=== PATIENT | female | born 1970 | race African-American/Black ===

== ENCOUNTER 2016-11-11 06:11 | Inpatient (IN) | payer MEDICARE ==
[~2016-11-11] VITALS: Ht 160 cm; Wt 150.8 kg
--- NOTE | ~2016-11-11 | CO ---
Unit #: [id number] #: [id number] Patient: JOSELYN MORSE [id number] [facility]. [place], [place] [address] [id number] I MR#: [id number] NAME: JOSELYN MORSE. ROOM: 550 Age: 45 Sex: F Admission Date: 11/11/2016 : 1970 Attending Physician: Juliette Porter M.D. Primary Care Physician: Kane Ferrara M.D. CONSULTATION REPORT REASON FOR CONSULTATION Elevated creatinine level. HISTORY OF PRESENT ILLNESS The patient is a 45-year-old morbidly obese female with known history of diabetes and proteinuria with clinical diagnosis of diabetic nephropathy with chronic kidney disease stage 3 to 4 with a creatinine level on admission noted to be 3.3 and 1.8 to 2.4 in the last one year. The patient has never needed dialysis in the past. The patient does report dysuria. She came in with chest discomfort and chest pain. Does not admit to NSAID use. No vomiting or diarrhea. No recent IV contrast. The patient has not needed dialysis in the past. PAST MEDICAL HISTORY Significant for type 2 diabetes, diabetic retinopathy, diabetic nephropathy, proteinuria, hypertension, history of DVT. PAST SURGICAL HISTORY Significant for . FAMILY HISTORY Significant for ESRD on mother. SOCIAL HISTORY The patient does not drink or smoke. REVIEW OF SYSTEMS CVS: As above. RESPIRATORY: No cough or expectoration. GI: No diarrhea. No vomiting. : As above. PHYSICAL EXAMINATION GENERAL: The patient is awake, alert, and oriented. VITAL SIGNS: Temperature of 98.1, heart rate is 80 per minute, blood pressure is 128/65, saturations are 100%. HEENT: Head is atraumatic. Extraocular movements are intact. Pupils are reactive. Sclerae are anicteric. Nose, no discharge. Ears, no discharge. NECK: Supple. There is no elevation of the JVD. CHEST: Clear. Air entry is equal bilaterally. Breathing is vesicular in nature. HEART: S1 and S2 audible. There is no S3, no S4. ABDOMEN: Soft. There is no organomegaly. No guarding. No rigidity. No Unit #: [id number] #: [id number] Patient: JOSELYN MORSE rebound tenderness. There is trace 1+ edema. [employer]ILDINGS: Motor system is intact. Cerebellar system is intact. DIAGNOSTIC STUDIES LABORATORY RESULTS: WBC 9.1, hemoglobin is 9.3, hematocrit is 28.6, platelets 275. Sodium is 138, potassium 4.6, chloride is 107, CO2 is 25, BUN is 41, creatinine is 3.3, glucose is 156, calcium is 8.4, total bilirubin is 0.3, albumin is 2.9. Urinalysis; has 3+ protein, rbc 2 to 5 with 50 to 100 wbc and 4+ bacteria. IMPRESSION 1. Acute kidney injury, possible underlying acute tubular necrosis secondary to urinary tract infection/sepsis versus progression of underlying chronic kidney disease stage 3 to 4. We will gently hydrate the patient and follow the renal function and waste products. Currently, urine output is adequate. No acute need for dialysis. 2. Chronic kidney disease. 3. Possible progression to end-stage renal disease. We will follow the progression of underlying chronic kidney disease. 4. Urinary tract infection. The patient is on Rocephin. 5. Hyperkalemia. 6. Chest pain. Cardiac workup in progress. 7. Shortness of breath. V/Q scan is unremarkable. 8. Hypertension. Use p.r.n. hydralazine. Dictated by... Kendell Barr M.D. RA/brittany TD: 11/13/2016 19:49 JOB #: [id number] CONSULTATION REPORT Page 1 of 1 X Kendell Barr MD CONSULTATION REPORT
--- NOTE | ~2016-11-11 | HP ---
Unit #: [id number] #: [id number] Patient: JOSELYN MORSE [id number] [facility]. [place], [place] [address] [id number] I MR#: [id number] NAME: JOSELYN MORSE. ROOM: 550 Age: 45 Sex: F Admission Date: 11/11/2016 : 1970 Attending Physician: Juliette Porter M.D. Primary Care Physician: Kane Ferrara M.D. HISTORY AND PHYSICAL CHIEF COMPLAINT Chest pain and shortness of breath. HISTORY OF PRESENT ILLNESS Ms. Morse is a 45-year-old -[place] morbidly obese female, is here with chest pain. According to patient, it has been going on for last few days or so. Two days ago, she was having some fever and chills and very strong smell in the urine. Yesterday, she was having fever and chills and also nausea and vomiting. She thought vomiting could be secondary to adjustment of Lap Band which was done a month ago or so. Yesterday, she started having shortness of breath. She could not walk, even a block without getting shortness of breath which according to her has improved. There was no complaint of orthopnea or paroxysmal nocturnal dyspnea. She does not complain of wheezing. Then this morning at 2 o'clock, she started having chest pain. She was sweating. She had some numbness on the left upper extremity and some pain in the left neck area too. She came to ER for further evaluation and is being admitted to hospital for angina. PAST MEDICAL HISTORY 1. Hypertension. 2. Obstructive sleep apnea. 3. COPD. 4. History of intracranial hemorrhage in 2008. 5. Hyperlipidemia. 6. Coronary artery disease. 7. Diabetes mellitus. 8. Degenerative disk disease. 9. Morbid obesity. 10. Anemia. 11. History of ischemic cardiomyopathy with ejection fraction of 30%. PAST SURGICAL HISTORY Multiple surgeries includin. Cardiac catheterization. 2. Cardiac stent placement. 3. Hysterectomy. 4. Tubal ligation. 5. IVC filter placement. 6. History of EGD in the past. SOCIAL HISTORY The patient lives at home. No history of smoking, alcohol, or drug abuse. Unit #: [id number] #: [id number] Patient: MINI,LAVADA T ALLERGIES No known drug allergies. FAMILY HISTORY Diabetes and hypertension is present. REVIEW OF SYSTEMS No history of dizziness or syncopal episode. She does have chronic vision problem because of macular degeneration. She does complain of some diarrhea but no constipation. She did have vomiting. She had Lap Band adjustment done about a month ago or so. Rest is as per history of presenting illness. Patient does not complain of any pain at this time. PHYSICAL EXAMINATION GENERAL: Patient is being evaluated in room 550. VITAL SIGNS: Blood pressure is 144/64, respiratory rate 18, pulse 76, temperature 98.6, oxygen saturation 96%. HEENT: Head is normocephalic. Eye movements are normal. No JVD. CHEST: Fair air entry, decreased at the bases. CARDIOVASCULAR: S1, S2 positive. Regular rhythm. ABDOMEN: Obese. No tenderness. EXTREMITIES: Edema is present bilateral, left is more than right. CENTRAL NERVOUS SYSTEM: Patient is awake, alert, oriented x3. No focal neurological deficit. DIAGNOSTIC STUDIES LABORATORY: WBC 9.1, hemoglobin 9.3, hematocrit 28.6, platelet count 275,000. Troponin is less than 0.05. PT/INR is 10.4 and 0.9. Sodium 138, potassium 4.6, chloride 107, BUN 41, creatinine 3.3. D-dimer elevated to 809. IMAGING: Chest x-ray was done in ER and that showed no acute cardiopulmonary findings. CARDIOVASCULAR: EKG: No significant changes. ASSESSMENT AND PLAN The patient is being admitted to telemetry unit at [facility]. Dr. Simon has been consulted. EKG and cardiac enzymes will be done q.6 times two. Home medications have been reviewed and adjusted. Venous Doppler of bilateral lower extremity will be done to rule out deep venous thrombosis. V/Q scan to rule out pulmonary embolus because of elevated D-dimer. Urinalysis and culture will be done. Dr. Nash will be consulted. Labs will be repeated tomorrow morning. BNP will be done. Healthy heart CCD. Protonix 40 mg daily. Accu-Cheks a.c. and at bedtime with insulin sliding scale low-dose protocol. Lovenox 40 mg subcutaneous daily. Dictated by Robert Adams TD: 11/11/2016 16:07 JOB #: [id number] Unit #: [id number] #: [id number] Patient: JOSELYN MOSRE HISTORY AND PHYSICAL Page 1 of 1 X Juliette Porter MD HISTORY AND PHYSICAL
--- NOTE | ~2016-11-11 | US84 ---
[id number] [facility] [address] [place], [place] [address] [id number] I MR#: [id number] Acc #: [id number] NAME: JOSELYN MORSE : 1970 SEX: F STUDY DATE/TIME: 11/11/2016 17:18 UNIT: C5B ROOM: 550 STUDY DESCRIPTION: US LE Veins Complete Zack Stdy Attending Physician: Juliette Porter M.D. Ordering Physician: Juliette Porter M.D. Primary Care Physician: Kane Ferrara M.D. MEDICAL IMAGING REPORT This report is preliminary unless electronic signature is present EXAM Bilateral lower extremity venous duplex 11/11/2016 HISTORY Bilateral lower extremity edema for 2 weeks, shortness of breath and chest pain for 2 weeks. Evaluate for deep vein thrombosis. TECHNIQUE Venous ultrasound examination of both lower extremities was performed using grayscale, spectral Doppler and color flow Doppler imaging. FINDINGS The examination is negative. There is no evidence of deep venous thrombus from the groin to the lower calf bilaterally. Visualized greater saphenous veins are also patent. IMPRESSION Negative examination. No evidence of lower extremity deep venous thrombosis. Dictated by... Ángel Riggs M.D. THIS IS AN ELECTRONICALLY VERIFIED REPORT Ángel Riggs M.D. at 11/12/2016 2:06 PM KRT/to TD: 11/11/2016 19:46 JOB #: [id number] MEDICAL IMAGING REPORT Page 1 of 1 COPY
--- NOTE | ~2016-11-11 | BMI ---
[facility] Nutrition Therapy DATE: 11/12/16 Patient: JOSELYN MORSE Physician: STELLA Address: [address] [place] [address] Room/Bed: [address] [place] [address], Zip: [place] [address] Admit Date: 11/11/16 Date of : [birth year] Height: 5 3 Weight: 340 154.22 HIGH BMI NOTE: DX: 45 y/o female admitted with SOA/chest pain ANTHROPOMETRICS: Ht: 63", Wt: 154 kg, BMI: 60 (stage III obese) DIET: NPO INTERVENTION: Restricted diet, meds/fluids per MD RECOMMENDATIONS: Once medically feasible advance to healthy heart/consistent carb diet per PMH and to promote a gradual weight loss towards a healthy BMI range. Respectfully, Dianne Westfall RD, LD [employer] and Nutrition[facility] Services [facility] cc: client file
--- NOTE | ~2016-11-11 | EKG ---
PATIENT: JOSELYN MORSE UNIT #: [id number] Ventricular Rate: 85 BPM Atrial Rate: 85 BPM P-R Interval: 154 ms QRS Duration: 66 ms Q-T Interval: 376 ms QTC Calculation(Bezet): 447 ms P Eugene: 41 degrees Calculated R Eugene: -10 degrees Calculated T Eugene: 76 degrees Diagnosis Line: Normal sinus rhythm Diagnosis Line: Normal ECG Diagnosis Line: When compared with ECG of 07-SEP-2015 07:06, Diagnosis Line: No significant change was found Diagnosis Line: Confirmed by LUIS WICK MD ([id number]) on Diagnosis Line: 11/11/2016 2:34:12 PM INTERPRETING MD: SHAMIKA AMANDA
--- NOTE | ~2016-11-11 | EKG ---
PATIENT: JOSELYN MORSE UNIT #: [id number] Ventricular Rate: 66 BPM Atrial Rate: 66 BPM P-R Interval: 160 ms QRS Duration: 74 ms Q-T Interval: 450 ms QTC Calculation(Bezet): 471 ms P Fieldale: 22 degrees Calculated R Fieldale: 23 degrees Calculated T Fieldale: 92 degrees Diagnosis Line: Normal sinus rhythm Diagnosis Line: Abnormal QRS-T angle, consider primary T wave Diagnosis Line: abnormality Diagnosis Line: Prolonged QT Diagnosis Line: Abnormal ECG Diagnosis Line: When compared with ECG of 11-NOV-2016 08:10, Diagnosis Line: (unconfirmed) Diagnosis Line: No significant change was found Diagnosis Line: Confirmed by LUIS WICK MD ([id number]) on Diagnosis Line: 11/12/2016 1:34:13 PM INTERPRETING MD: SHAMIKA AMANDA
--- NOTE | ~2016-11-11 | CO ---
Unit #: [id number] #: [id number] Patient: JOSELYN MORSE [id number] [address] [place], [place] [address] [id number] I MR#: [id number] NAME: JOSELYN MORSE. ROOM: 550 Age: 45 Sex: F Admission Date: 11/11/2016 : 1970 Attending Physician: Juliette Porter M.D. Primary Care Physician: Kane Ferrara M.D. CONSULTATION REPORT REASON FOR CONSULTATION Chest pain. HISTORY OF PRESENTING ILLNESS This is a 45-year-old female known to Dr. Mendez with a prior medical history of coronary artery disease status post stent to her circumflex in 02/2015, ischemic cardiomyopathy in the past with an EF of 30% per cath in 2014, chronic diastolic congestive heart failure, hypertension, hyperlipidemia, diabetes mellitus, iron deficiency anemia, DVT and PE status post IVC filter. Her last cardiac cath done 02/2015 showed a normal left main, normal RCA, first diagonal with 30% stenosis, mid left circumflex with 99% stenosis. She underwent a stent to her left circumflex at that time. She also has a history of chronic kidney disease and follows with Dr. Nash as an outpatient. She presented to the ER with chest pain and increasing shortness of air. Reports dyspnea on exertion over the last 2 days with orthopnea and PND. She also reports abdominal swelling and a recent 25-pound weight gain in the last 2 months. She also has intermittent chills with nausea and vomiting lasting approximately 2 days. At 2 a.m., after ambulating to the bathroom, the patient developed left upper chest squeezing and tightness with some palpitations, shortness of air, nausea and diaphoresis. The pain remained until she was seen in the ER approximately 2 hours later and given nitroglycerin. Currently she is chest pain free. She still has dyspnea on exertion and some nausea. Her D-dimer was elevated at 809. Her troponin and EKGs were negative for ischemia. She reports that she had run out of her blood pressure medications and her diuretics last week. PAST MEDICAL HISTORY 1. Coronary artery disease status post stent to left circumflex in . 2. Cardiac catheterization 03/2010 showed normal coronaries. 3. Cardiac cath 02/2015 showed left main normal, RCA normal, first diagonal 30%, left circumflex 99% mid. 4. Ischemic cardiomyopathy with EF 30% per cath in 2014. 5. Chronic diastolic congestive heart failure. 6. Echo August 2015 showed LVEF 55%, mild mitral regurgitation and tricuspid regurgitation. 7. Hypertension. 8. Hyperlipidemia. Unit #: [id number] #: [id number] Patient: JOSELYN MORSE 9. Diabetes mellitus. 10. 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 11. Chronic kidney disease. 12. Obstructive sleep apnea with CPAP. 13. Iron deficiency anemia. 14. GERD. 15. Diverticulosis. 16. Lumbar disk disease. 17. Status post Lap-Band. PAST SURGICAL HISTORY 1. Cardiac catheterization. 2. Hysterectomy. 3. Tubal ligation. 4. IVC filter. 5. EGD. 6. Lap-Band in 2015. SOCIAL HISTORY The patient is disabled and lives with her . She denies a history of smoking, alcohol or illicit drug use. FAMILY HISTORY Denies a family history of premature coronary artery disease. ALLERGIES No known drug allergies. HOME MEDICATIONS 1. Isosorbide dinitrate 20 mg p.o. t.i.d. 2. Brilinta 90 mg p.o. b.i.d. 3. Amlodipine 10 mg p.o. daily. 4. Aspirin 81 mg p.o. daily. 5. Neurontin 100 mg p.o. t.i.d. 6. Hydrocodone/acetaminophen 5/325 mg 1 tab p.o. t.i.d. as needed for pain. 7. Toprol XL 100 mg p.o. daily. 8. Hydralazine 25 mg p.o. t.i.d. 9. Lipitor 40 mg p.o. at bedtime. 10. Lantus 30 units subcu b.i.d. 11. Bumex 2 mg p.o. t.i.d. 12. K-Dur 20 mEq p.o. daily. 13. Januvia 50 mg p.o. every afternoon. 14. Humalog 15 units before meals t.i.d. 15. Robaxin 750 mg p.o. at bedtime. 16. Nitrostat 0.4 mg sublingual q.5 minutes x3 as needed for chest pain. REVIEW OF SYSTEMS A 10-point review of systems was conducted and is otherwise negative except for what was stated in the HPI. PHYSICAL EXAMINATION VITAL SIGNS: Temperature 98.6, heart rate 76, respiratory rate 18, O2 sat 96%, blood pressure 144/64, height 63", weight 154.2 kg. GENERAL: This is a pleasant 42-year-old female resting in bed in no acute distress. HEENT: Head is atraumatic and normocephalic. Pupils are equal and reactive to light. Mucous membranes are moist. Unit #: [id number] #: [id number] Patient: JOSELYN MORSE NECK: Supple. Trachea is midline. Negative for JVD. LUNGS: Clear to auscultation. Nonlabored respirations. CARDIOVASCULAR: S1, S2. Regular rate and rhythm. No murmurs, rubs or gallops. ABDOMEN: Soft, nontender, nondistended. EXTREMITIES: Pulses are palpable. Bilateral lower extremity edema, left greater than right. NEUROLOGIC: Alert and oriented x3. Moves all extremities equally and follows commands without difficulty. DIAGNOSTIC STUDIES LABORATORY RESULTS: Sodium 138, potassium 4.6, chloride 107, BUN 41, creatinine 3.3, glucose 156. Hemoglobin 9.3, hematocrit 28.6, white blood cell count 9.1, platelets 275. AST 13, ALT 12, alkaline phosphatase 113, lipase 19. D-dimer 809. Hgwxr-es-lmbm troponin less than 0.05. IMAGING STUDIES: Chest x-ray showed no acute disease. CARDIOVASCULAR STUDIES: EKG - Showed sinus rhythm with nonspecific T wave abnormalities and a ventricular rate of 84. No acute ST changes. ASSESSMENT 1. Chest pain. 2. Shortness of breath. 3. Chronic diastolic congestive heart failure with an EF of 55% in 2016. 4. Acute kidney injury on chronic kidney disease. 5. Coronary artery disease status post stent to the left circumflex in 2014. 6. Hypertension. 7. Hyperlipidemia. 8. Diabetes mellitus. 9. Morbid obesity. 10. Obstructive sleep apnea with CPAP. 11. History of DVT and PE status post IVC filter. 12. Lower extremity edema, left greater than right. PLAN 1. Check echocardiogram. 2. BNP. 3. TSH and fasting lipid profile. 4. Cardiac enzymes x2 six hours apart. 5. VQ scan pending. 6. Bilateral lower extremity Dopplers to rule out DVT. 7. Continue nitrate, dual antiplatelet therapy, calcium channel shasta, beta-shasta, statin, hydralazine and Bumex. 8. Renal consulted. Thank you for asking us to see this patient. We appreciate the consult. Dictated by... Karen Linder APRN for Vitaliy Mendez M.D. EVERTON/bhavana TD: 11/13/2016 09:05 Unit #: [id number] #: [id number] Patient: JOSELYN MORSE JOB #: [id number] CONSULTATION REPORT Page 1 of 1 X X CONSULTATION REPORT
--- NOTE | ~2016-11-11 | ST ---
Unit #: [id number] #: [id number] Patient: JOSELYN MORSE [id number] [address] [place], [place] [address] [id number] I MR#: [id number] NAME: JOSELYN MORSE. : 1970 SEX: F STUDY DATE/TIME: 11/13/2016 UNIT: C5B ROOM: 550 STUDY DESCRIPTION: Stress Test Attending Physician: Juliette Porter M.D. Primary Care Physician: Kane Ferrara M.D. CARDIOLOGY REPORT EXAM Stress nuclear and ECG. INDICATIONS Chest pain, dyspnea. SUMMARY Patient was given Lexiscan intravenously while at rest as well as technetium 99 Cardiolite, 29.9 mCi with stress. This would be a 2-day study if the stress was abnormal. Because the stress was normal, it will be a 1-day study. The rest and stress ECG showed no diagnostic ST shifts. T waves were inverted in lead aVL, both at rest and with stress. Heart rate increased from 74 to 86 and blood pressure decreased 136/68 to 124/71. There was nausea associated with the Lexiscan, but no other symptoms. Perfusion images demonstrate very poor uptake throughout the myocardium with diaphragmatic artifact, chest wall attenuation artifact, but otherwise normal perfusion. Gated perfusion wall motion analysis demonstrates a very large ventricle, 147 mL, with mild generalized hypokinesis, calculated ejection fraction 59%. Qualitatively, the ejection fraction appears to be in the 45% to 50% range. There is no significant patient motion noted at rest or stress. There is significant breast attenuation artifact. There is no significant lung uptake. There is mild LV enlargement. RV is not well seen. IMPRESSION Normal stress study. Patient may be discharged. Normal stress ECG with Lexiscan. Dictated by... Robert Flowers/marianela TD: 11/14/2016 10:10 JOB #: [id number] Unit #: [id number] #: [id number] Patient: JOSELYN MORSE CARDIOLOGY REPORT Page 1 of 1 X Vitaliy Mendez MD CARDIOLOGY REPORT
--- NOTE | ~2016-11-11 | TH ---
Unit #: [id number] #: [id number] Patient: JOSELYN MORSE [id number] [address] [address] [id number] I MR#: [id number] NAME: JOSELYN MORSE. : 1970 SEX: F STUDY DATE/TIME: 11/13/2016 UNIT: C5B ROOM: 550 STUDY DESCRIPTION: Stress nuclear Attending Physician: Juliette Porter M.D. Primary Care Physician: Kane Ferrara M.D. CARDIOLOGY REPORT EXAM Stress nuclear. INDICATIONS Chest pain, dyspnea. FINDINGS Result text under stress test. Please see this report for result text. Dictated by... Robert Flowers/marianela TD: 11/14/2016 10:21 JOB #: [id number] CARDIOLOGY REPORT Page 1 of 1 X Vitaliy Mendez MD CARDIOLOGY REPORT
--- NOTE | ~2016-11-11 | CR72 ---
[facility]. [facility] A Service of [facility] & [facility] RADIOLOGY TEXT RESULTS PATIENT: JOSELYN MORSE LOCATION: [facility] : [birth year] UNIT #: [id number] AGE: [address]: Juliette Porter MD SEX: F ORDER DR: [id number] [address] [address] [id number] E MR#: [id number] Acc #: [id number] NAME: JOSELYN MORSE. : 1970 SEX: F STUDY DATE/TIME: 11/11/2016 6:42 UNIT: SED ROOM: STUDY DESCRIPTION: CR Chest Single View Portable Attending Physician: Obinna Park M.D. Ordering Physician: Jamie Westfall M.D. Primary Care Physician: Kane Ferrara M.D. MEDICAL IMAGING REPORT This report is preliminary unless electronic signature is present. EXAM Portable chest, 11/11/2016 HISTORY 45-year-old female with chest pain and shortness of air beginning yesterday. COMPARISON Chest, 11/29/2015 FINDINGS Frontal chest demonstrates clear lungs. No pleural effusion or pneumothorax. Heart size and mediastinum are normal. Pulmonary vasculature unremarkable. IMPRESSION No acute cardiopulmonary findings. Dictated by... Fede Andrews M.D. THIS IS AN ELECTRONICALLY VERIFIED REPORT Fede Andrews M.D. at 11/12/2016 7:17 AM EMERALD/konrad TD: 11/11/2016 10:45 JOB #: [id number] MEDICAL IMAGING REPORT Page 1 of 1
--- NOTE | ~2016-11-11 | DS ---
Unit #: [id number] #: [id number] Patient: JOSELYN MORSE [id number] [address] [address] [id number] I MR#: [id number] NAME: JOSELYN MORSE. ROOM: 550 Age: 45 Sex: F Admission Date: 11/14/2016 : 1970 Discharge Date: 11/15/2016 Attending Physician: Juliette Porter M.D. Primary Care Physician: Kane Ferrara M.D. DISCHARGE SUMMARY FINAL DIAGNOSES 1. Chest pain: Acute myocardial infarction was ruled out. Lexiscan stress test was done which was negative. 2. Acute on chronic kidney disease: Patient was evaluated by Dr. Nash during hospitalization. 3. Chronic diastolic congestive heart failure with ejection fraction of 50% to 55%. 4. Coronary artery disease with history of stent placement in 2014. 5. Hypertension. 6. Urinary tract infection with urine culture growing Escherichia coli more than 100,000 colonies. 7. Diabetes mellitus type 2. 8. Obstructive sleep apnea, on CPAP. 9. Hyperlipidemia. 10. Hyperkalemia secondary to acute kidney disease. 11. Left lower extremity edema more than right: Deep venous thrombosis ruled out. 12. Anemia. DISCHARGE MEDICATIONS 1. Ceftin 250 mg p.o. b.i.d. for four days. 2. Brilinta 90 mg twice a day. 3. Isosorbide 20 mg three times a day. 4. Nitroglycerin 0.4 mg sublingual p.r.n. for chest pain. 5. Lantus 50 units subcu b.i.d. 6. Humalog 15 units t.i.d. with meals. 7. Aspirin 81 mg daily. 8. Hydrocodone, continue home dose. 9. Neurontin 100 mg three times a day. 10. Januvia 50 mg daily. 11. Amlodipine 10 mg daily. 12. Metoprolol succinate SR 100 mg daily. 13. Bumex 2 mg b.i.d. 14. Lipitor 40 mg q. h.s. 15. Hydralazine 25 mg three times a day. CONSULTATION DURING HOSPITALIZATION 1. Dr. Nash - Renal Services. 2. Dr. Mendez - Cardiology Services. LAB WORKUP ON DISCHARGE BMP shows sodium 142, potassium 5.1, chloride 110, BUN 51, creatinine 3.6, calcium 7.6. Unit #: [id number] #: [id number] Patient: JOSELYN MORSE CBC on discharge shows WBC 8.6, hemoglobin 8.0, hematocrit 24.4 and platelet count of 244. SIGNIFICANT IMAGING STUDIES DONE DURING HOSPITALIZATION V/Q scan of the lungs because of elevated D-dimer which was normal. Lower extremity venous Doppler because of elevated D-dimer which was negative for any DVT. PROCEDURE PERFORMED DURING HOSPITALIZATION Lexiscan Stress Test which is negative. Echocardiogram which shows ejection fraction of 50% to 55%, normal wall motion, mild to moderate concentric left ventricular hypertrophy, left ventricle size normal, grade 2 diastolic dysfunction, mild to moderate tricuspid regurgitation with right ventricular systolic pressure of approximately 60 mmHg. HOSPITAL COURSE 45-year-old female who was admitted with chest pain and shortness of breath. Patient was admitted to telemetry unit. Dr. Simon was consulted. Acute myocardial infarction was ruled out. Patient had a Lexiscan stress test done which was negative. Patient's D-dimer was elevated. V/Q scan was done and pulmonary embolism was ruled out. DVT was ruled out because of patient's leg swelling. Patient is doing well from that aspect. Patient did develop acute on chronic kidney disease. Dr. Nash was consulted. Most likely, patient does have chronic kidney disease stage 3 to 4. There is a possibility of progression to end stage renal disease. Patient will need to continue to be observed as an outpatient. Patient will follow with Dr. Nash as an outpatient. Patient did have UTI with urine culture positive for E. coli. Patient received IV Rocephin during hospitalization. Will complete the course with p.o. antibiotic. EXAMINATION ON DISCHARGE Blood pressure is 132/75, respiratory rate 20, pulse is 77, temperature 97.6. Oxygen saturation is 77%. CHEST: Fair air entry, no additional sounds. CVS: S1, S2 positive. Regular rhythm. ABDOMEN: Obese. EXTREMITIES: Negative edema. DISCHARGE INSTRUCTIONS 1. The patient is being discharged home in stable condition. 2. Follow up with primary care provider in one week. 3. BMP and CBC to be done in one week to evaluate renal functions and her anemia. 4. Follow up with Dr. Nash in two weeks. Plan of care has been discussed with patient. Dictated by... Unit #: [id number] #: [id number] Patient: JOSELYN MORSE M.D. KN/df TD: 11/16/2016 05:38 JOB #: [id number] DISCHARGE SUMMARY Page 1 of 1 X Juliette Porter MD X DISCHARGE SUMMARY
--- NOTE | ~2016-11-11 | NM69 ---
[facility] A Service of [facility] RADIOLOGY TEXT RESULTS PATIENT: JOSELYN MORSE LOCATION: [facility] 550-01 : [birth year] UNIT #: [id number] AGE: [address]: Juliette Porter MD SEX: F ORDER DR: [id number] [facility] [address] [place], [place] [address] [id number] MR#: [id number] Acc #: [id number] NAME: JOSELYN MORSE. : 1970 SEX: F STUDY DATE/TIME: 11/12/2016 10:43 UNIT: [facility] ROOM: [facility] STUDY DESCRIPTION: NM Pulm Vent and Perf Attending Physician: Juliette Porter M.D. Ordering Physician: Juliette Porter M.D. Primary Care Physician: Kane Ferrara M.D. MEDICAL IMAGING REPORT This report is preliminary unless electronic signature is present EXAM Ventilation perfusion lung scan HISTORY Exertional shortness of breath over the past 2 weeks accompanied by chest pain. Chest pain has been present for the past 2 days. TECHNIQUE The patient was administered 33.8 mCi of technetium 99m DTPA aerosol for ventilation and 5.65 mCi of technetium 99m MAA for perfusion. Multiple views were obtained over the chest. The study is correlated with a chest x-ray from 11/11/2016. FINDINGS Ventilation and perfusion is normal. There is no evidence of mismatch to suggest pulmonary embolism. No perfusion defects are seen. IMPRESSION Normal examination. STAT * RESULT Dictated by... Kobi Salas M.D. THIS IS AN ELECTRONICALLY VERIFIED REPORT Kobi Salas M.D. at 11/12/2016 3:38 PM RLF/minnier TD: 11/12/2016 12:20 [facility] A Service of [facility] RADIOLOGY TEXT RESULTS PATIENT: JOSELYN MORSE LOCATION: [facility] 550- : [birth year] UNIT #: [id number] AGE: [address]: Juliette Porter MD SEX: F ORDER DR: JOB #: [id number] MEDICAL IMAGING REPORT Page 1 of 1 COPY
--- NOTE | ~2016-11-11 | EKG ---
PATIENT: JOSELYN MORSE UNIT #: [id number] Ventricular Rate: 73 BPM Atrial Rate: 73 BPM P-R Interval: 144 ms QRS Duration: 76 ms Q-T Interval: 412 ms QTC Calculation(Bezet): 453 ms P [place]: 10 degrees Calculated R [place]: -11 degrees Calculated T [place]: 94 degrees Diagnosis Line: Normal sinus rhythm Diagnosis Line: Abnormal QRS-T angle, consider primary T wave Diagnosis Line: abnormality Diagnosis Line: Abnormal ECG Diagnosis Line: When compared with ECG of 11-NOV-2016 06:26, Diagnosis Line: No significant change was found Diagnosis Line: Confirmed by LUIS WICK MD ([id number]) on Diagnosis Line: 11/12/2016 1:35:30 PM INTERPRETING MD: SHAMIKA AMANDA
[~2016-11-11 06:11] MED LIST: ACCU CHEK MC; ACETAMINOPHEN PO; AMLODIPINE BESY10 MG PO; AMOXICILLIN875 MG PO; APAP325 M1 PO; APIDRA (NF100 UNITS/ SUBQ; APRESOLINE PO; ASPIRIN EC81 M1 PO; BACTRIM DS TABL1 TA1 PO; BRILINTA90 MG PO; BUMEX2 MG PO; DIFLUCAN PO; HUMALOG100 U/M2; HUMALOG100 U/ML; HUMALOG100 UNIT/1 SUBQ; HYDRALAZINE HCL25 MG PO; HYDROCHLOROTHIA25 MG PO; HYDROCODON-ACE1 EAC7 PO; HYDROCODONE-APA1 T61 PO; ISORDIL PO; JANUVIA50 MG PO; K-DUR20 ME1; KEFLEX PO; LANCETS1 EAC1 MC; LANTUS100 U/ML SUBQ; LANTUS100 UNITS/ SUBQ; LASIX PO; LASIX20 MG PO; LIPITOR40 MG PO; LIPITOR80 MG PO; LISINOPRIL PO; LISINOPRIL10 MG PO; LISINOPRIL20 MG PO; LOC PO; LORTAB 5-325 M1 EACH PO; LOVENOX100 MG/ML INJ; MACRODANTIN PO; MEDI-MECLIZINE25 M1 PO; METFORMIN HCL1000 M1 PO; METFORMIN PO; NEURONTIN100 MG PO; NITROGLYCERIN0.4 MG SL; NITROSTAT0.4 MG SL; NORVASC10 MG PO; NOVOLIN 70/30 U13 M1 SUBQ; NOVOLIN 70/30 V10 M1 INJ; NOVOLIN 70/30 V10 M1 SQ; NOVOLIN 70/30 V10 ML INJ; PERCOCET 5/321 UDTAB PO; PERCOCET5/325 PO; PRAVASTATIN SOD20 MG PO; PRED FORTE1 ML; PRED FORTE1 ML OS; PROTONIX PO; ROBAXIN 750750 M1; TESSALON PERLE100 M1 PO; TOPROL XL 50 MG50 MG PO; TOPROL XL100 MG PO; TRADJENTA5 MG PO; TRAMADOL HCL50 M1 PO; ULTRAM; ULTRAM PO; XARELTO15 MG PO; [UNRECOGNIZED DRUG - OTHER] MC
[2016-11-11 06:44] LABS: BASOPHIL# 0.1 X10e3 (0-0.3); BASOPHIL% 0.7 % (0-2.5); EOSINOPHIL# 0.3 X10e3 (0-0.7); EOSINOPHIL% 3.1 % (0.0-7.0); HEMATOCRIT 28.6 % (35.0-45.0); HEMOGLOBIN 9.3 gm/dL (12.0-16.0); LYMPHOCYTE# 2.2 X10e3 (1.0-3.5); LYMPHOCYTE% 24.5 % (17.0-45.0); MEAN CORPUSCULAR HEMOGLOBIN 27.7 PG (28-34); MEAN CORPUSCULAR HGB CONC 32.6 g/dL (30-36); MEAN PLATELET VOLUME 8.5 FL (6.5-11.5); MONOCYTE# 0.6 X10e3 (0-1.0); MONOCYTE% 7.1 % (3.0-12.0); NEUTROPHIL# 5.9 X10e3 (1.5-7.1); NEUTROPHIL% 64.6 % (40-75); PLATELET COUNT 275 X10e3 (140-420); RED BLOOD COUNT 3.36 X10e (3.90-5.30); RED CELL DISTRIBUTION WIDTH 13.9 % (11.0-15.5); WHITE BLOOD COUNT 9.1 X10e3 (4.0-10.5)
[2016-11-11 06:45] LABS: DIFF IND NO
[2016-11-11 06:58] LABS: INR 0.9; PROTHROMBIN TIME (PATIENT) 10.4 SECONDS (9.5-12.4)
[2016-11-11 06:59] LABS: POC - CKMB 10.8 ng/mL (0.0-7.9); POC - TROPONIN <0.05 ng/mL (<=0.05)
[2016-11-11 07:05] LABS: ALBUMIN SERUM 2.9 g/dL (3.5-5.0); ALKALINE PHOSPHATASE 113 U/L (32-92); ALT (SGPT) 12 U/L (10-40); AST (SGOT) 13 U/L (10-42); BILIRUBIN,TOTAL 0.3 mg/dL (0.2-2.0); BLOOD UREA NITROGEN 41 mg/dL (9-23); BUN/CREATININE RATIO 12.42; CALCIUM SERUM 8.4 mg/dL (8.4-10.2); CARBON DIOXIDE 25 mmol/L (22-31); CHLORIDE 107 mmol/L (100-111); CREATININE SERUM 3.3 mg/dL (0.6-1.4); GLOM FILT RATE Estimated 18.3 mL/min (>60); GLUCOSE FASTING 156 mg/dL (70-110); PARTIAL THROMBOPLASTIN TIME 31.5 SECONDS (25.6-38.1); POTASSIUM 4.6 mmol/L (3.5-5.1); PROTEIN TOTAL SERUM 6.9 g/dL (6.0-8.3); SODIUM 138 mmol/L (135-145)
[2016-11-11 07:06] LABS: BILIRUBIN, DIRECT <0.1 mg/dL (0.0-0.2); BILIRUBIN,INDIRECT 0.2 mg/dL (0.0-0.9)
[2016-11-11 09:04] LABS: POC - CKMB 6.4 ng/mL (0.0-7.9); POC - TROPONIN <0.05 ng/mL (<=0.05)
[2016-11-11 16:41] LABS: %MB 1.7 % (0.0-4.0); MB 5.2 ng/ml
[2016-11-11 17:08] LABS: CHOLESTEROL 199 mg/dL (0-200); HDL CHOLESTEROL 50 mg/dL (35-95); LDL CHOLESTEROL 118 mg/dL ([, -130]); LDL/HDL RATIO 2 RATIO (0-4); TRIGLYCERIDES 154 mg/dL (10-160)
[2016-11-11 19:04] LABS: URINE APPEARANCE CLOUDY; URINE BILIRUBIN NEG (NEG); URINE BLOOD 1+ (NEG); URINE COLOR YELLOW; URINE GLUCOSE 250 MG/DL (NEG); URINE KETONE NEG (NEG); URINE LEUKOCYTE ESTERASE 2+ (NEG); URINE NITRATE NEG (NEG); URINE PH 6.5 (5-8); URINE PROTEIN 3+ (NEG); URINE SPECIFIC GRAVITY 1.017 (1.003-1.035); URINE UROBILINOGEN 0.2 MG/DL (NEG)
[2016-11-11 19:06] LABS: URINE BACTERIA AUWI 4+ (NEGATIVE); URINE SQUAMOUS EPITHELIAL CELL FEW /[HPF]; UWBCS1 AUWI 50-100 (0-5)
[2016-11-11 21:53] LABS: MB 6.6 ng/ml
[2016-11-12 05:28] LABS: HEMATOCRIT 26.3 % (35.0-45.0); HEMOGLOBIN 8.4 gm/dL (12.0-16.0); MEAN CELL VOLUME 85.1 FL (83-96); MEAN CORPUSCULAR HEMOGLOBIN 27.2 PG (28-34); MEAN PLATELET VOLUME 8.6 FL (6.5-11.5); RED BLOOD COUNT 3.1 X10e (3.90-5.30); RED CELL DISTRIBUTION WIDTH 14.1 % (11.0-15.5); WHITE BLOOD COUNT 9.3 X10e3 (4.0-10.5)
[2016-11-12 06:23] LABS: BUN/CREATININE RATIO 11.76; CREATININE SERUM 3.4 mg/dL (0.6-1.4); GLOM FILT RATE Estimated 17.7 mL/min (>60); POTASSIUM 5.1 mmol/L (3.5-5.1)
[2016-11-13 07:46] LABS: BUN/CREATININE RATIO 11.11; CALCIUM SERUM 7.9 mg/dL (8.4-10.2); CREATININE SERUM 3.6 mg/dL (0.6-1.4); GLOM FILT RATE Estimated 16.5 mL/min (>60); POTASSIUM 5.2 mmol/L (3.5-5.1)
[2016-11-14 08:43] LABS: CREATININE,RANDOM URINE 128 mg/dL; TOTAL PROTEIN,RANDOM URINE 778 mg/dl (<10)
[2016-11-14 09:56] LABS: HEMATOCRIT 26.4 % (35.0-45.0); HEMOGLOBIN 8.7 gm/dL (12.0-16.0); MEAN CELL VOLUME 85.1 FL (83-96); MEAN CORPUSCULAR HEMOGLOBIN 28.1 PG (28-34); MEAN PLATELET VOLUME 8.4 FL (6.5-11.5); RED BLOOD COUNT 3.1 X10e (3.90-5.30); RED CELL DISTRIBUTION WIDTH 14.3 % (11.0-15.5)
[2016-11-14 10:54] LABS: BUN/CREATININE RATIO 12.97; CREATININE SERUM 3.7 mg/dL (0.6-1.4); POTASSIUM 5.1 mmol/L (3.5-5.1)
[2016-11-15 05:30] LABS: HEMATOCRIT 24.4 % (35.0-45.0); MEAN CELL VOLUME 84.3 FL (83-96); MEAN CORPUSCULAR HEMOGLOBIN 27.6 PG (28-34); MEAN CORPUSCULAR HGB CONC 32.8 g/dL (30-36); MEAN PLATELET VOLUME 8.7 FL (6.5-11.5); RED BLOOD COUNT 2.89 X10e (3.90-5.30); RED CELL DISTRIBUTION WIDTH 14.1 % (11.0-15.5); WHITE BLOOD COUNT 8.6 X10e3 (4.0-10.5)
[2016-11-15 06:30] LABS: BUN/CREATININE RATIO 14.16; CALCIUM SERUM 7.6 mg/dL (8.4-10.2); CREATININE SERUM 3.6 mg/dL (0.6-1.4); GLOM FILT RATE Estimated 16.5 mL/min (>60); POTASSIUM 5.1 mmol/L (3.5-5.1)
[2016-11-15] MEDS ORDERED: LANTUS100 UNITS/ SUBQ (13:24)
[2016-11-15] MEDS ORDERED: CEFTIN PO (13:25)
[2016-11-15] MEDS ORDERED: DIFLUCAN PO (13:27)
== END 2016-11-15 14:28 | disposition home or self-care (01) | DRG 683 ==
LOC: SED 06:11 → C5B 07:56 → SED 08:00 → C5B 11-14 14:15
PROVIDERS: Emergency Medicine; Hospitalist; Internal Medicine Nephrology; Physician Assistant Medical
PROC: B246YZZ Ultrasonography of Right and Left Heart using Other Contrast (ICD-10-PCS; principal; 2016-11-12)
DX: N17.9 Acute kidney failure, unspecified (principal); N39.0 Urinary tract infection, site not specified; I13.0 Hypertensive heart and chronic kidney disease with heart failure and stage 1 through stage 4 chronic kidney disease, or unspecified chronic kidney disease; I50.32 Chronic diastolic (congestive) heart failure; E11.21 Type 2 diabetes mellitus with diabetic nephropathy; Z68.44 Body mass index [BMI] 60.0-69.9, adult; B96.20 Unspecified Escherichia coli [E. coli] as the cause of diseases classified elsewhere; I25.10 Atherosclerotic heart disease of native coronary artery without angina pectoris; I25.5 Ischemic cardiomyopathy; N18.4 Chronic kidney disease, stage 4 (severe); E78.5 Hyperlipidemia, unspecified; Z79.4 Long term (current) use of insulin; E11.319 Type 2 diabetes mellitus with unspecified diabetic retinopathy without macular edema; D50.9 Iron deficiency anemia, unspecified; Z86.711 Personal history of pulmonary embolism; Z86.718 Personal history of other venous thrombosis and embolism; G47.33 Obstructive sleep apnea (adult) (pediatric); K21.9 Gastro-esophageal reflux disease without esophagitis; M51.36 Other intervertebral disc degeneration, lumbar region; Z90.710 Acquired absence of both cervix and uterus; Z98.84 Bariatric surgery status; Z79.82 Long term (current) use of aspirin; E66.01 Morbid (severe) obesity due to excess calories; E87.5 Hyperkalemia; D64.9 Anemia, unspecified
CPT/HCPCS: 36415; 71010; 78451; 78582; 80048; 80061; 80076; 81003; 82550; 82553; 82570; 82947; 83880; 84156; 84443; 84484; 85025; 85027; 85379; 85610; 85730; 87086; 87088; 87186; 93005; 93017; 93306; 93970; 96374; 96375; 99285; A9500; A9540; A9567; J0696; J1650; J1815; J2270; J2405; J2785